=== PATIENT | male | born 1980 | race African-American/Black ===

== ENCOUNTER 2019-07-31 | Emergency (ER) | payer OTHER ==
[2019-07-31] MEDS ORDERED: NAPROXEN500 MG PO (17:13)
== END 2019-07-31 17:24 | DRG 563 ==
PROC: 2W3EX1Z Immobilization of Right Hand using Splint (ICD-10-PCS; principal; 2019-07-31)
DX: S62.324A Displaced fracture of shaft of fourth metacarpal bone, right hand, initial encounter for closed fracture (principal); Y04.0XXA Assault by unarmed brawl or fight, initial encounter; Y92.149 Unspecified place in prison as the place of occurrence of the external cause